=== PATIENT | male | born 1955 | race Caucasian/White ===

== ENCOUNTER → 2017-03-16 | Outpatient (CLI) | payer BC ==
[~2017-03-16] MED LIST: COZAAR50 MG PO; NO HOME MEDICATIONS
== END ==
LOC: COL.RAD 13:39
DX: R06.02 Shortness of breath (principal)

== ENCOUNTER 2020-10-12 13:40 | Outpatient (CLI) | payer MEDICARE, BC ==
[~2020-10-12] VITALS: Ht 182.9 cm; Wt 81.3 kg
[~2020-10-12 13:40] MED LIST changes: +COZAAR 25MG25 MG/TAB PO; -COZAAR50 MG PO
[2020-10-12 14:15] VITALS: PULSE 77; TEMP 98.6
[2020-10-12 14:30] VITALS: BP 104/65; PULSE 79; TEMP 99.1
[2020-10-12 14:50] VITALS: BP 109/69; PULSE 78
[2020-10-12 15:11] VITALS: BP 119/73; PULSE 77
== END 2020-10-12 17:10 | disposition home or self-care (01) ==
LOC: EUO 13:40
DX: U07.1 COVID-19 (principal)
CPT/HCPCS: Q0244

== ENCOUNTER 2021-01-14 06:52 | Day surgery (SDC) | payer MEDICARE, BC ==
[2021-01-14] VITALS (12 sets, daily range): BP systolic 105–128; BP diastolic 64–86; PULSE 60–75; TEMP 98.4
[~2021-01-14] VITALS: Ht 182.9 cm; Wt 84.0 kg
[2021-01-14 07:53] LABS: HEMATOCRIT 40.7 % (42.0-52.0); HEMOGLOBIN 14.6 g/dl (13.5-18.0); MEAN CELL VOLUME 87 fl (80.0-100.0); MEAN CORPUSCULAR HEMOGLOBIN 31 pg (27.0-31.0); MEAN CORPUSCULAR HGB CONC 36 g/dl (33.0-37.0); MEAN PLATELET VOLUME 9.9 fl (7.4-10.4); PLATELET COUNT 204 K/mm3 (130-400); RED BLOOD COUNT 4.68 M/mm3 (4.20-5.60); REDCELL DISTRIBUTION WIDTH-CV 12.4 % (11.5-14.5)
[2021-01-14 08:04] LABS: INR 1.1 (0.8-3.0); PROTHROMBIN TIME 12.6 SECONDS (9.7-12.8)
[2021-01-14 08:05] LABS: CALCIUM 10.1 mg/dL (8.4-10.2); CREATININE, serum 0.77 mg/dL (0.72-1.25)
[2021-01-14 08:06] LABS: PARTIAL THROMBOPLASTIN TIME 34.7 SECONDS (26.0-37.0)
--- NOTE | 2021-01-14 08:43 | NUR ---
SEE MERGE FOR ALL MEDICATION ADMINISTRATION TIMES/DOSAGES AND INTRA/POST PROCEDURE SEDATION ASSESSMENT. PRE PROCEDURE ASSESSMENT COMPLETED IN [facility].
[2021-01-14] MEDS ORDERED: PROBIOTIC BLEN1 EACH PO (08:47)
[2021-01-14] MEDS ORDERED: METAMUCIL3.4 GM/DOS PO (08:47)
[2021-01-14] MEDS ORDERED: COLLAGEN PLUS PO (08:48)
[2021-01-14] MEDS ORDERED: OMEGA-3 FISH1000 MG PO (08:48)
[2021-01-14] MEDS ORDERED: CBD OIL TOP (08:49)
[2021-01-14] MEDS ORDERED: VITAMINC1000TA PO (08:49)
[2021-01-14] MEDS ORDERED: TURMERIC500 MG PO (08:50)
[2021-01-14] MEDS ORDERED: GLUCOSAMINE & C1 CA2 PO (08:51)
[2021-01-14] MEDS ORDERED: PHARMASSURE ZIN50 MG PO (08:51)
[2021-01-14] MEDS ORDERED: MSM500 MG PO (08:51)
[2021-01-14] MEDS ORDERED: VITAMIN B12 681 TAB PO (08:57)
[2021-01-14] MEDS ORDERED: CBD OIL SL (08:58)
[2021-01-14] MEDS ORDERED: TOPROL XL 25MG25 MG PO (11:14)
[2021-01-14] MEDS ORDERED: LIPITOR 40MG TA40 MG PO (11:15)
--- NOTE | 2021-01-14 13:25 | NUR ---
DC instructions reviewed with pt, he expresses understanding. Air was removed from TR band in 2 ml increments with complications. Rt radial puncture site dressed with folded 2x2 and bandaid. Pt has been steady on feet in room. INT DC'd with catheter intact. Awaiting return of pt's for ride home.
--- NOTE | 2021-01-14 13:50 | NUR ---
Pt assisted out to 's truck by wheelchair with belongings. He has been sitting up in chair awaiting her return. No dizziness or concerns with activity. Rt radial puncture site remains soft to palpation and bandaid is clean, dry and intact.
== END 2021-01-14 13:50 | disposition home or self-care (01) ==
LOC: COL.CAR 06:52
PROVIDERS: Internal Medicine Cardiovascular Disease
DX: I25.10 Atherosclerotic heart disease of native coronary artery without angina pectoris (principal); R94.39 Abnormal result of other cardiovascular function study; R06.02 Shortness of breath
CPT/HCPCS: C1769; J1644; J2250; J3010; Q9967